=== PATIENT | male | born 1965 | race African-American/Black ===

== ENCOUNTER 2020-02-13 14:10 | Inpatient (IN) | payer MEDICARE ==
[~2020-02-13] VITALS: Ht 172.7 cm; Wt 66.7 kg
--- NOTE | 2020-02-13 14:00 | NUR ---
PATIENT ADMIT FROM [facility] ; WITH STABLE VITAL SIGNS ; PATIENT CALM AND COOPERATIVE WITH NO SIGNS OF DISTRESS; PATIENT ANOX4 ABLE TO RESPOND TO ALL QUESTIONS.PATIENT GIVEN RIGHTS HAND BOOK AND ADVISEMENT.
[2020-02-13] MEDS ORDERED: LORAZEPAM 1 MG TABLET PO PRN (14:30)
[2020-02-13] MEDS ORDERED: MAG HYDROX/AL HYDROX/SIMETH 30 ML LIQUID UDC PO PRN (14:30)
[2020-02-13] MEDS ORDERED: MAGNESIUM HYDROXIDE 30 ML LIQUID UDC PO PRN (14:30)
[2020-02-13] MEDS ORDERED: ACETAMINOPHEN 325 MG TABLET PO PRN (14:30)
[2020-02-13] MEDS ORDERED: TEMAZEPAM 7.5 MG CAPSULE PO PRN (14:30)
[2020-02-13 15:31] VITALS: BP 108/67
[2020-02-13] MEDS: BENZTROPINE MESYLATE 1 MG TABLET PO SCH (21:00)
[2020-02-13] MEDS: risperiDONE 1 MG TABLET PO SCH (21:00)
--- NOTE | 2020-02-13 21:00 | NUR ---
ASSUME CARE OF PATIENT AT THIS TIME. PATIENT NOTED SLEEPING COMFORTABLE IN HIS BED, EASILY AROUSABLE. PT IN NO DISTRESS. SAFETY AND FALL PRECAUTION IN PLACE. WILL CONTINUE TO MONITOR.
[2020-02-13 21:49] VITALS: BP 121/63
--- NOTE | 2020-02-13 22:30 | NUR ---
PATIENT NOTED SLEEPING COMFORTABLE IN HIS BED. CONSENT FOR RISPERIDONE 2MG AM/HS WAS FAXED TO OUTSIDE PHARMACY. AWAITING TO BE VERIFY. SAFETY AND FALL PRECAUTION IN PLACE. WILL CONTINUE TO MONITOR.
[2020-02-14 07:30] VITALS: BP 117/73
[2020-02-14 08:00] LABS: BILIRUBIN,TOTAL 0.4 mg/dL (0.2-1.0); CREATININE 1.1 mg/dL (0.6-1.3); POTASSIUM 4.5 mmol/L (3.5-5.1); TOTAL PROTEIN, SERUM 6.2 g/dL (6.4-8.2)
[2020-02-14] MEDS: BENZTROPINE MESYLATE 1 MG TABLET PO SCH ×2 (08:23→20:33)
[2020-02-14] MEDS: risperiDONE 1 MG TABLET PO SCH ×2 (08:23→20:33)
--- NOTE | 2020-02-14 10:24 | NUR ---
Social Work Individual Therapy: lot worker met with patient for brief counseling. lot worker assessed for patients level of suicidality. Patient denies SI. Patient is withdrawn and is unable to have a meaningful conversation with this contract writer. This contract writer provided mental health referrals to patient such as [facility] Crisis Line ( ), [place] Suicide Prevention Lifeline ( ) , [facility] Substance Abuse Helpline ( ).
--- NOTE | 2020-02-14 13:50 | NUR ---
Social Work Family Contact: Patient does not have any family members at this moment to contact.
--- NOTE | 2020-02-14 13:50 | NUR ---
Social Work Initial Discharge Plan: Patient is currently homeless. Per patient, he would want to be discharged to a long-term. Patient does not have any family members to contact at this moment. feed elevator worker will work with the MD regarding appropriate discharge planning. feed elevator worker will form a safe and proper discharge.
[2020-02-14 15:22] VITALS: BP 120/58
--- NOTE | 2020-02-14 15:32 | NUR ---
Social Work Firearms Report ([employer]): Rigging Worker completed and submitted a [employer] firearms report for 5150 danger to himself certification. A copy of report has been placed in patient chart.
[2020-02-14 20:54] VITALS: BP 127/66
[2020-02-15 07:30] VITALS: BP 103/69
[2020-02-15] MEDS: BENZTROPINE MESYLATE 1 MG TABLET PO SCH ×2 (09:05→20:27)
[2020-02-15] MEDS: risperiDONE 1 MG TABLET PO SCH ×2 (09:05→20:27)
--- NOTE | 2020-02-15 09:07 | NUR ---
AWAKE ALERT RESTING IN BED AFTER BREAKFAST COMPLIANT WITH MEDICATIONS STATED WAITING TO TALK TO THE FIRE CONTROL OFFICER RE SOCIAL SECURITY.MESSAGE SENT TO THE FIRE CONTROL OFFICER TO ASSIST PATIENT.
[2020-02-15 16:19] VITALS: BP 103/63
--- NOTE | 2020-02-15 16:20 | NUR ---
PATIENT SEEN AND EXAMINED BY DR KING WITH ORDER FOR 14 DAY HOLD AND TO START ON [place]. 14 DAY HOLD SERVED AND EXPLAINED TO THE PATIENT
[2020-02-15 20:04] VITALS: BP 120/65
--- NOTE | 2020-02-15 22:12 | NUR ---
GPS/ Received pt in bed lying but respond to name. Awake and was up watching TV, no behavior noted, denied pain or discomfort. Pt denied thought of hurting self or others. Cooperative with routine medications and took shower. Encouraged to vent out feelings. Will continue to monitor.
--- NOTE | 2020-02-16 06:53 | NUR ---
No behavior during night and pt slept 8.15min. Awake to name and light touch. Denied pain or discomfort.
[2020-02-16 07:30] VITALS: BP 107/58
[2020-02-16] MEDS: SERTRALINE HCL 50 MG TABLET PO SCH (08:48)
[2020-02-16] MEDS: BENZTROPINE MESYLATE 1 MG TABLET PO SCH ×2 (08:48→22:59)
[2020-02-16] MEDS: risperiDONE 1 MG TABLET PO SCH ×2 (08:48→22:59)
--- NOTE | 2020-02-16 14:10 | NUR ---
SW Brief Substance Abuse Intervention: Patient was provided with a brief substance abuse intervention and provided with the [facility] Substance Abuse Self-helpline ([facility]) ([phone]), [place] lung association 800-LUNGUSA and [employer] [phone], Nicotine Anonymous ([phone]).
[2020-02-16 16:00] VITALS: BP 98/60
[2020-02-16 20:48] VITALS: BP 99/63
[2020-02-17 07:30] VITALS: BP 108/63
[2020-02-17] MEDS: risperiDONE 1 MG TABLET PO SCH ×2 (08:34→20:01)
[2020-02-17] MEDS: BENZTROPINE MESYLATE 1 MG TABLET PO SCH ×2 (08:35→20:01)
[2020-02-17] MEDS: SERTRALINE HCL 50 MG TABLET PO SCH (08:35)
--- NOTE | 2020-02-17 10:24 | NUR ---
Social Work Individual Therapy: asbestos removal worker met with patient for brief counseling. asbestos removal worker assessed for patients level of suicidality. Patient denies SI. This designer writer provided mental health referrals to patient such as [facility] Crisis Line ( ), [place] Suicide Prevention Lifeline ( ) , [facility] Substance Abuse Helpline ( ). asbestos removal worker encouraged patient to contact either family, hotline, or a professional if patient were to have suicidal thoughts. This designer writer also encouraged patient to alert either this designer writer or the nursing staff.
[2020-02-17 15:19] VITALS: BP 108/63
[2020-02-17 20:22] VITALS: BP 129/62
[2020-02-18 07:30] VITALS: BP 114/69
[2020-02-18] MEDS: BENZTROPINE MESYLATE 1 MG TABLET PO SCH ×2 (08:14→20:07)
[2020-02-18] MEDS: risperiDONE 1 MG TABLET PO SCH ×2 (08:14→20:06)
[2020-02-18] MEDS: SERTRALINE HCL 50 MG TABLET PO SCH (08:14)
--- NOTE | 2020-02-18 10:30 | NUR ---
GPS: RECEIVED PATIENT AOX4, PATIENT IS SELF CARE AMBULATORY, DENIES SI AND HI, PATIENT COMPLIANT WITH MEDICATION, SEEN WATCHING TV IN THE DINING ROOM, DENIES AND DISCOMFORT
[2020-02-18 16:04] VITALS: BP 105/58
--- NOTE | 2020-02-18 18:13 | NUR ---
GPS: PATIENT BEEN CALM AND COOPERATIVE, DENIES SI AND HI, WATCHING TV IN THE DING ROOM, SEEN WALKING IN THE HALLWAY, WILL CONTINUE MONITOR
[2020-02-18 20:00] VITALS: BP 144/72
[2020-02-19 07:54] VITALS: BP 99/61
[2020-02-19] MEDS: SERTRALINE HCL 50 MG TABLET PO SCH (08:29)
[2020-02-19] MEDS: risperiDONE 1 MG TABLET PO SCH ×2 (08:29→20:17)
[2020-02-19] MEDS: BENZTROPINE MESYLATE 1 MG TABLET PO SCH ×2 (08:30→20:17)
[2020-02-19 16:00] VITALS: BP 114/64
[2020-02-19 20:00] VITALS: BP 127/69
[2020-02-20 07:30] VITALS: BP 110/66
[2020-02-20] MEDS: SERTRALINE HCL 50 MG TABLET PO SCH (08:15)
[2020-02-20] MEDS: risperiDONE 1 MG TABLET PO SCH ×2 (08:15→20:20)
[2020-02-20] MEDS: BENZTROPINE MESYLATE 1 MG TABLET PO SCH ×2 (08:15→20:20)
[2020-02-20 08:16] LABS: BASOPHILS % (AUTO) 0.9 % (0.0-2.0); EOSINOPHILS # (AUTO) 0.2 K/uL (0.0-0.7); EOSINOPHILS % (AUTO) 4.5 % (0.0-7.0); HEMATOCRIT 42.6 % (36.7-47.1); HEMOGLOBIN 13.7 g/dL (12.5-16.3); LYMPHOCYTES # (AUTO) 1.5 K/uL (20.0-40.0); LYMPHOCYTES % (AUTO) 42.4 % (20.5-51.5); MEAN CORPUSCULAR HEMOGLOBIN 28.6 uug (23.8-33.4); MEAN CORPUSCULAR HGB CONC 32 g/dL (32.5-36.3); MONOCYTES # (AUTO) 0.4 K/uL (2.0-10.0); NEUTROPHILS # (AUTO) 1.4 K/uL (1.8-8.9); NEUTROPHILS % (AUTO) 41.2 % (38.5-71.5); PLATELET COUNT (AUTO) 196 K/uL (152-348); RED BLOOD CELL COUNT(AUTO) 4.79 MIL/uL (4.06-5.63); WHITE BLOOD COUNT (AUTO) 3.4 K/uL (3.6-10.2)
--- NOTE | 2020-02-20 08:42 | NUR ---
GPS: RECEIVED PATIENT AOX3-4, PATIENT CALM COOPERATIVE, PATIENT DENIES SI AND HI,ATE BREAKFAST IN THE DINING ROOM WATCHING TV, ASSISTED WITH ADLS, WILL CONTINUE MONITOR FOR ANY SUICIDAL IDEATION
[2020-02-20 16:00] VITALS: BP 105/62
--- NOTE | 2020-02-20 18:56 | NUR ---
patient remain calm cooperative , took shower, shave and attended group , patient denies SI and HI
[2020-02-20 20:46] VITALS: BP 118/82
[2020-02-21 07:30] VITALS: BP 115/67
[2020-02-21] MEDS: SERTRALINE HCL 50 MG TABLET PO SCH (08:06)
[2020-02-21] MEDS: risperiDONE 1 MG TABLET PO SCH ×2 (08:06→20:57)
[2020-02-21] MEDS: BENZTROPINE MESYLATE 1 MG TABLET PO SCH ×2 (08:06→20:56)
--- NOTE | 2020-02-21 08:56 | NUR ---
GPS: PATIENT AOX4, COMPLIANT WITH MEDICATION, DENIES SI AND HI, SITS IN DINING ROOM WATCHING TV, ATTENDS GROUP THERAPY, WILL CONTINUE MONITOR
[2020-02-21 15:15] VITALS: BP 121/71
[2020-02-21 20:37] VITALS: BP 135/82
--- NOTE | 2020-02-22 02:18 | NUR ---
GPS/ PT ALERT, ON 14 DAYS HOLD. PT STABLE WITH NO BEHAVIOR NOTED. COOPERATIVE WITH ROUTINE MEDICATIONS. AMBULATE FROM ROOM TO TV ROOM. EAT 100% SNACKS. NO C/O PAIN OR DISCOMFORT. PT LYING IN BED WITH AROUSE TO NAME.
[2020-02-22 07:30] VITALS: BP_SYST 109; BP_SYST 115; BP_DIAS 65; BP_DIAS 75
[2020-02-22] MEDS: SERTRALINE HCL 50 MG TABLET PO SCH (08:54)
[2020-02-22] MEDS: BENZTROPINE MESYLATE 1 MG TABLET PO SCH ×2 (08:54→21:02)
[2020-02-22] MEDS: risperiDONE 1 MG TABLET PO SCH ×2 (08:54→21:02)
--- NOTE | 2020-02-22 13:11 | NUR ---
Social Work Individual Therapy: precision printing worker met with patient for brief counseling. precision printing worker assessed for patients level of suicidality. Patient denies SI. Patient stated that he was "never suicidal". This freelance copywriter provided mental health referrals to patient such as [facility] Crisis Line ( ), [place] Suicide Prevention Lifeline ( ) , [facility] Substance Abuse Helpline ( ). precision printing worker encouraged patient to contact either family, hotline, or a professional if patient were to have suicidal thoughts.
[2020-02-22 16:44] VITALS: BP 104/69
--- NOTE | 2020-02-22 18:00 | NUR ---
no distress noted, patient denied suicidal thoughts, cooperative with medication and with care, ambulatory, independent with adls
[2020-02-22 20:28] VITALS: BP 112/73
[2020-02-23 07:30] VITALS: BP 136/69
--- NOTE | 2020-02-23 08:54 | NUR ---
Discharge Note: Patient will be discharged to [facility] [address] [place] [address] ([phone]). Patient will be provided with Taxi transportation to the pickup location [address] [place] [address] at 11am and will be picked up at 4:30 at the meeting location. Patient is aware and agreeable with discharge plan. Patient presents with appropriate mood and congruent affect. Patient denies suicidal or homicidal ideation. Patient does not have any supportive contacts to notify at this time. Patient was provided with a brief substance abuse intervention and provided with the [facility] Substance Abuse Self-helpline ([facility]) ([phone]), [place] lung association 800-LUNGUSA and [place] [phone], Nicotine Anonymous ([phone]). Patient also provided with [facility] [address] [place] [address], [facility] [address] [place] [address] , and [facility] ([facility] based) [address] [place] [address] ([phone]. Patient agreed and signed the homeless patient waiver form. Patient was provided with the homeless snf packet and a copy is placed in the patients chart, which includes a list of emergency shelters, housing resources, drop in centers, and showers/hot meals centers. This also includes the Homeless Information Hotline (405)-588-7829 or 211, [facility] [employer] , and the [facility] (800)-656-1504. Patient was also provided with outpatient mental health resources to [facility] Crisis Line , and the National Suicide Prevention Lifeline . [facility] Psychiatrist Dr. Shelia Rutledge and has an appointment scheduled via telephone call Friday02/25/2020 at 1pm [address] [place] [address] ) and will follow up with Primary Care Physician Dr. Demond Cortes and has an appointment scheduled via telephone call on 02/24/2020 at 9am.
[2020-02-23] MEDS: BENZTROPINE MESYLATE 1 MG TABLET PO SCH (09:20)
[2020-02-23] MEDS: SERTRALINE HCL 50 MG TABLET PO SCH (09:20)
[2020-02-23] MEDS: risperiDONE 1 MG TABLET PO SCH (09:20)
--- NOTE | 2020-02-23 12:36 | NUR ---
Received [facility] via taxi with taxi voucher, discharge instruction given as ordered. no SOB and no c/o pain noted at this time. all belongings and valuables accounted for and signed. questions and concerns addressed.
== END 2020-02-23 11:30 | disposition home or self-care (01) | DRG 885 ==
LOC: GPS 14:10
PROVIDERS: ADMIT Psychiatry & Neurology Psychiatry; ATTEND Internal Medicine
DX: F20.0 Paranoid schizophrenia (principal); E44.1 Mild protein-calorie malnutrition; F14.10 Cocaine abuse, uncomplicated; F11.10 Opioid abuse, uncomplicated; F12.10 Cannabis abuse, uncomplicated; Z59.0 Homelessness; R73.03 Prediabetes; Z68.22 Body mass index [BMI] 22.0-22.9, adult; F29 Unspecified psychosis not due to a substance or known physiological condition; R00.1 Bradycardia, unspecified; E88.09 Other disorders of plasma-protein metabolism, not elsewhere classified
CPT/HCPCS: 36415; 84443; 85025; 93005; A4663